=== PATIENT | female | born 1970 | race African-American/Black ===

== ENCOUNTER 2018-07-22 08:44 | Emergency (ER) | payer SELFPAY ==
[~2018-07-22] VITALS: Ht 162.6 cm; Wt 79.0 kg
[2018-07-22] MEDS ORDERED: HYDROCODONE/ACETAMINOPHEN 5/325MG TABLET PO ONE (10:45)
[2018-07-22] MEDS ORDERED: AMLODIPINE 5MG TABLET PO ONE (10:45)
[2018-07-22 10:54] LABS: BASOPHILS % 1.4 % (0.0-2.0); EOSINOPHILS % 2.9 % (0.0-5.0); HEMATOCRIT. 35.6 % (36.0-48.0); HEMOGLOBIN. 12.2 g/dL (12.0-16.0); LYMPHOCYTES % 44.3 % (20.0-50.0); MEAN CORPUSCULAR HEMOGLOBIN 35.8 pg (28.0-32.0); MEAN CORPUSCULAR VOLUME 105.2 fL (81.0-99.0); MEAN PLATELET VOLUME 8.8 fl (7.4-10.4); MONOCYTES % 6.2 % (2.0-8.0); NEUTROPHILS % 45.2 % (40.0-76.0); PLATELET 364 x1000/uL (130-400); RED BLOOD CELL COUNT 3.39 mill/uL (4.2-5.4); RED CELL DISTRIBUTION WIDTH 13.8 % (11.6-14.6)
[2018-07-22 11:00] LABS: CHLORIDE 107 mEq/L (98-107)
[2018-07-22 11:31] LABS: CLARITY URINE CLEAR (CLEAR); COLOR URINE YELLOW (YELLOW); KETONES URINE NEGATIVE (NEGATIVE); LEUKOCYTE ESTERASE URINE NEGATIVE (NEGATIVE); NITRITE URINE NEGATIVE (NEGATIVE); OCCULT BLOOD URINE NEGATIVE (NEGATIVE); PROTEIN URINE NEGATIVE (NEGATIVE); SPECIFIC GRAVITY URINE 1.012 (1.005-1.030)
[2018-07-22 11:52] LABS: *AMPHETAMINES SCREEN URINE NEGATIVE (NEGATIVE)
[2018-07-22 11:53] LABS: *BARBITURATES SCREEN URINE NEGATIVE (NEGATIVE); *BENZODIAZEPINES SCREEN URINE NEGATIVE (NEGATIVE); *COCAINE SCREEN URINE NEGATIVE (NEGATIVE); CANNABINOID URINE SCREEN NEGATIVE (NEGATIVE); METHADONE URINE SCREEN NEGATIVE (NEGATIVE); OPIATES URINE SCREEN NEGATIVE (NEGATIVE); PHENCYCLIDINE URINE SCREEN NEGATIVE (NEGATIVE)
[2018-07-22 14:00] VITALS: BP 124/60
== END 2018-07-22 14:13 | disposition home or self-care (01) ==
LOC: ER 08:44
DX: K52.9 Noninfective gastroenteritis and colitis, unspecified (principal); E86.0 Dehydration; R61 Generalized hyperhidrosis; D53.9 Nutritional anemia, unspecified; F17.210 Nicotine dependence, cigarettes, uncomplicated; Z90.49 Acquired absence of other specified parts of digestive tract; Z87.828 Personal history of other (healed) physical injury and trauma; Z98.890 Other specified postprocedural states
CPT/HCPCS: 36415; 74176; 80305; 81025; 83605; 93005; 99284

== ENCOUNTER 2019-03-08 18:51 | Inpatient (IN) | payer OTHER, MEDICAID ==
[~2019-03-08] VITALS: Ht 162.6 cm; Wt 78.5 kg
[2019-03-08 21:36] LABS: CHLORIDE 108 mEq/L (98-107)
[2019-03-08 21:38] LABS: BASOPHILS % 1.4 % (0.0-2.0); EOSINOPHILS % 1.7 % (0.0-5.0); HEMOGLOBIN. 10.9 g/dL (12.0-16.0); LYMPHOCYTES % 36.8 % (20.0-50.0); MEAN CORPUSCULAR VOLUME 111.9 fL (81.0-99.0); MEAN PLATELET VOLUME 9.7 fl (7.4-10.4); MONOCYTES % 4.7 % (2.0-8.0); NEUTROPHILS % 55.4 % (40.0-76.0); PLATELET 286 x1000/uL (130-400); RED BLOOD CELL COUNT 2.86 mill/uL (4.2-5.4); RED CELL DISTRIBUTION WIDTH 17.4 % (11.6-14.6)
[2019-03-08 21:58] LABS: PLATELET ESTIMATE NORMAL
[2019-03-08] MEDS ORDERED: ACETAMINOPHEN 325MG TABLET PO ONE (22:15)
[2019-03-08] MEDS ORDERED: POTASSIUM CHLORIDE 20MEQ TABLET SR PO ONE (22:15)
[2019-03-09] MEDS ORDERED: SODIUM CHLORIDE 0.9% 500 ML IV ONE (01:00)
[2019-03-09] MEDS ORDERED: ASPIRIN 325MG EC TABLET PO ONE (01:00)
[2019-03-09] MEDS ORDERED: HYDROCODONE/ACETAMINOPHEN 5/325MG TABLET PO PRN (04:30)
[2019-03-09] MEDS ORDERED: ACETAMINOPHEN 325MG TABLET PO PRN (04:30)
[2019-03-09] MEDS ORDERED: MAGNESIUM/ALUMINUM HYDROXIDE/SIMETHICONE 30ML UDC PO PRN (04:30)
[2019-03-09] MEDS ORDERED: CLONIDINE 0.1MG TABLET PO PRN (04:30)
[2019-03-09] MEDS ORDERED: MORPHINE SULFATE 2 MG/ML CPJ (NOT FOR IM USE) IV PRN (04:30)
[2019-03-09] MEDS ORDERED: DOCUSATE SODIUM 100MG CAPSULE PO PRN (04:30)
[2019-03-09] MEDS ORDERED: ONDANSETRON HCL 4MG/2ML INJ IV PRN (04:30)
[2019-03-09 08:00] VITALS: BP 155/82
[2019-03-09] MEDS ORDERED: ENOXAPARIN 40MG/0.4ML SYR SUBCUT SCH (08:00)
[2019-03-09 08:30] VITALS: BP 155/82
[2019-03-09] MEDS ORDERED: ASPIRIN 81MG EC TABLET PO SCH (09:00)
[2019-03-09] MEDS ORDERED: AMLODIPINE 10MG TABLET PO SCH (09:00)
[2019-03-09] MEDS ORDERED: POTASSIUM CHLORIDE 20MEQ TABLET SR PO NR (09:27)
[2019-03-09 10:21] LABS: CREATINE KINASE 102 IU/L (26-192)
[2019-03-09 10:39] VITALS: BP 155/82
[2019-03-09] MEDS ORDERED: HYDRALAZINE HCL 25MG TABLET PO SCH (14:00)
== END 2019-03-09 11:20 | disposition home or self-care (01) | DRG 199 ==
LOC: ER 19:28 → 8WST 03-09 01:31 → ENRESERV 03-09 03:35
PROVIDERS: ADMIT Hospitalist; ATTEND Hospitalist
DX: I16.0 Hypertensive urgency (principal); I11.9 Hypertensive heart disease without heart failure; E87.6 Hypokalemia; F17.210 Nicotine dependence, cigarettes, uncomplicated; Z90.81 Acquired absence of spleen; M25.522 Pain in left elbow; Z87.440 Personal history of urinary (tract) infections; Z90.49 Acquired absence of other specified parts of digestive tract
CPT/HCPCS: 36415; 71045; 73080; 82550; 83880; 84484; 93005; 93970; 99285; J1650; J2270; J7040